=== PATIENT | female | born 1985 | race Caucasian/White ===

== ENCOUNTER → 2021-01-01 | Outpatient (CLI) | payer BC, MEDICAID | END | disposition home or self-care (01) | LOC: LAB SPEC 19:04 | PROVIDERS: ATTEND Urology | DX: F31.9 Bipolar disorder, unspecified (principal) | CPT/HCPCS: 36415; 80178 ==

== ENCOUNTER 2021-09-22 09:46 | Emergency (ER) | payer MEDICARE, BC, MEDICAID ==
[~2021-09-22] VITALS: Ht 160 cm; Wt 99.5 kg
[2021-09-22 10:32] VITALS: BP 136/90
== END 2021-09-22 12:44 | disposition home or self-care (01) ==
LOC: ER 09:47
DX: T82.838A Hemorrhage due to vascular prosthetic devices, implants and grafts, initial encounter (principal); Q79.60 Ehlers-Danlos syndrome, unspecified; K31.84 Gastroparesis; Z86.2 Personal history of diseases of the blood and blood-forming organs and certain disorders involving the immune mechanism; Y84.8 Other medical procedures as the cause of abnormal reaction of the patient, or of later complication, without mention of misadventure at the time of the procedure; Y92.89 Other specified places as the place of occurrence of the external cause
CPT/HCPCS: 99284

== ENCOUNTER 2022-01-13 19:28 | Emergency (ER) | payer MEDICARE, BC, MEDICAID ==
[~2022-01-13] VITALS: Ht 160 cm; Wt 101.8 kg
--- NOTE | 2022-01-13 20:48 | NUR ---
Interperter computer at bedside. Set up for ASL.
[2022-01-13] MEDS ORDERED: famotidine/PF 10 mg/ml inj IV ONE (21:25)
[2022-01-13] MEDS ORDERED: diphenhydrAMINE 50 mg/ml inj IV ONE (21:30)
[2022-01-13] MEDS ORDERED: TIZA4CAP PO (22:42)
[2022-01-13] MEDS ORDERED: CELE-193 PO (22:42)
[2022-01-13] MEDS ORDERED: APIX5TAB3 PO (22:42)
[2022-01-13] MEDS ORDERED: VERA40TA5 PO (22:42)
[2022-01-13] MEDS ORDERED: LAMO25TA5 PO (22:42)
[2022-01-13] MEDS ORDERED: POLY119P2 PO (22:42)
[2022-01-13] MEDS ORDERED: GABA600T13 PO (22:42)
[2022-01-13] MEDS ORDERED: FEXO180T94 PO (22:42)
[2022-01-13] MEDS ORDERED: MELA10TA PO (22:42)
[2022-01-13] MEDS ORDERED: LITH300C PO (22:42)
[2022-01-13] MEDS ORDERED: ZILE600T PO (22:42)
[2022-01-13] MEDS ORDERED: TEN1T PO (22:42)
[2022-01-13] MEDS ORDERED: DOXE100C10 PO (22:42)
[2022-01-13] MEDS ORDERED: MIRT-114 PO (22:42)
[2022-01-13] MEDS ORDERED: apixaban 5mg tablet PO SCH (23:38)
[2022-01-13] MEDS ORDERED: celeCOXIB 100mg capsule PO SCH (23:39)
[2022-01-13] MEDS ORDERED: guanFACINE 1 mg tablet PO SCH (23:39)
[2022-01-13] MEDS ORDERED: lamoTRIgine 100mg tablet PO SCH (23:39)
[2022-01-13] MEDS ORDERED: gabapentin 300mg capsule PO SCH (23:42)
[2022-01-13] MEDS ORDERED: doxepin 25mg capsule PO SCH (23:56)
[2022-01-13] MEDS ORDERED: loratadine 10mg tablet PO SCH (23:57)
[2022-01-14] MEDS ORDERED: Melatonin 3mg tablet PO SCH (00:27)
[2022-01-14] MEDS ORDERED: mirtazapine 15mg tablet PO SCH (00:30)
[2022-01-14] MEDS ORDERED: tizanidine 4mg tablet PO SCH (00:31)
[2022-01-14] MEDS ORDERED: polyethylene glycol 3350 17gm powd pack PO SCH (00:32)
[2022-01-14] MEDS ORDERED: ZILEUTON 600 MG PO SCH (00:39)
[2022-01-14 02:10] VITALS: BP 141/82
== END 2022-01-14 01:40 | disposition home or self-care (01) ==
LOC: ER 19:29
DX: Z04.6 Encounter for general psychiatric examination, requested by authority (principal); Z20.822 Contact with and (suspected) exposure to COVID-19; Z88.1 Allergy status to other antibiotic agents; Z88.6 Allergy status to analgesic agent; Z88.8 Allergy status to other drugs, medicaments and biological substances; Z88.5 Allergy status to narcotic agent
CPT/HCPCS: 87811; 96374; 96375; 99284; J1200; J3490

== ENCOUNTER 2024-11-11 15:04 | Emergency (ER) | payer MEDICARE, BC, MEDICAID ==
[~2024-11-11] VITALS: Ht 160 cm; Wt 89.0 kg
[~2024-11-11 15:04] MED LIST: APIX5TAB3 PO; CELE-193 PO; DOXE100C10 PO; FEXO180T94 PO; GABA-1405 PO; LAMO25TA5 PO; LITH300C PO; MELATONIN10 MG PO; POLY119P2 PO; TEN1T PO; TIZA4CAP PO; VERA40TA5 PO; ZILE600T PO; [UNRECOGNIZED DRUG - CODE] PO
[2024-11-11 15:06] VITALS: BP 104/50; PULSE 92; RESP 16; O2SAT 98
--- NOTE | 2024-11-11 15:17 | Physician Documentation ---
History of Present Illness ~ Stated Complaint: 5150 Time Seen by MD: 15:39 OK to notify your PCP?: Yes Primary Medical Doctor: Alexandro Huizar Source: patient, RN/, RN notes reviewed, old records Mode of Arrival: POV Exam Limitations: no limitations HPI 39-year-old female brought in by [facility] crisis team with a written 5150. She reportedly overdosed on an unknown medication 2 weeks ago and today notified [facility] that she was going to attempt to end her life by putting air into her central line. She is deaf and when using sign language interpretation she was not answering our questions about if she has an active plan will now to end her life. She has a complex medical history and reports that she no longer wants to deal with her medical problems. 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 Patient presents of a bipap machine as she has a collapse of her dynamic airway and she states she is on BIPAP 04/01. Her primary complaint is that she wants to kill herself as she is overwhelmed with her medical management. She arrives with luggage and a side bag filled with medications and requests to be in charge of her own medications while on a mental health hold. Additionally patient self caths as she cannot empty her bladder on her own. She also has a feeding tube and a port. Of note she states that she receives her medical treatment from both [place] and [place]. Medication Reconciliation Allergies: Coded Allergies: Latex, Natural Rubber (Verified Allergy, Unknown, 11/11/24) Opioids - Morphine Analogues (Verified Allergy, Unknown, 11/11/24) aripiprazole (Verified Allergy, Unknown, 11/11/24) aztreonam (Verified Allergy, Unknown, 11/11/24) clomipramine (Verified Allergy, Unknown, 11/11/24) clonazepam (Verified Allergy, Unknown, 11/11/24) docusate (Verified Allergy, Unknown, 01/13/22) haloperidol (Verified Allergy, Unknown, 01/13/22) lorazepam (Verified Allergy, Unknown, 01/13/22) prochlorperazine (Verified Allergy, Unknown, 01/13/22) tramadol (Verified Allergy, Unknown, 01/13/22) vancomycin (Verified Allergy, Unknown, 01/13/22) Scheduled Apixaban (Eliquis), 1 TAB PO BID, (Reported) Celecoxib* (Celebrex*), 1 CAP PO BID, (Reported) Doxepin HCl (Doxepin HCl), 1 CAP PO HS, (Reported) Fexofenadine* (Mey*), 2 TAB PO HS, (Reported) Gabapentin (Gabapentin), 2 TAB PO TID, (Reported) Guanfacine Hcl (TENEX tablet), 1 MG PO TID, (Reported) Lamotrigine (Lamotrigine), 250 MG PO HS, (Reported) [place] Carbonate ([place] Carbonate), 3 CAP PO HS, (Reported) Melatonin (Melatonin), 1 TAB PO HS, (Reported) Mirtazapine (Remeron), 2 TAB PO HS, (Reported) Polyethylene Glycol 3350 (Miralax), 17 GM PO HS, (Reported) Tizanidine Hcl (Zanaflex), 1 CAP PO HS, (Reported) Verapamil Hcl (Verapamil Hcl), 40 MG PO TID, (Reported) Zileuton (Zyflo), 2 TAB PO BID, (Reported) Past Medical History Past Medical History: Migraine, Arrhythmia, *PULMONARY*, Asthma, Sleep Apnea, *GI/HEPATOBILIARY*, GERD, *HEMATOLOGY*, Anemia, Hypothyroidism, Arthritis, Deep Vein Thrombosis, Fibromyalgia, *PSYCH*, Anxiety, Bipolar, Depression Past Surgical History: noncontributory Alcohol Use: None Drug Use: none Lives with: Mother Lives In: Home Review of Systems All Other Systems at this time: Reviewed and Negative ROS As stated above in the HPI, otherwise all systems are reviewed and negative. Physical Exam Vital Signs: RN Vital Signs have been reviewed: Yes Pulse Oximetry Reflects: adequate oxygenation Physical Exam Rapid medical assessment: General: Alert, no apparent distress. HEENT: PERRL, EOMI, no injection, moist mucous membranes. Neck: Full range of motion. Respiratory: Lungs clear, no respiratory distress. Home CPAP in use. Chest: No accessory muscle use. Cardiovascular: Regular rate and rhythm, no murmurs. Gastrointestinal: Soft, nontender, nondistended. Bowels sounds present. Extremities: Normal range of motion, no deformity. Neurologic: Oriented x4. Psychiatric: Withdrawn and tearful. Skin: Normal color, warm and dry. No edema, no ecchymosis. Knight: General: Patient is wearing oxygen mask. She is speaking using sign language. The patient is well developed, well nourished, nontoxic appearing and is in no acute distress. Skin: [place], warm and dry with no rashes. HEENT: Head was normocephalic and atraumatic. Eyes - pupils equal, round, reactive to light and accommodation. Extraocular movements were intact. Conjunctivae were nonicteric. Ears - bilateral tympanic membranes were normal. The mouth and oropharynx were clear with moist mucous membranes. There were no pharyngeal exudates or erythema. Neck: Supple and nontender. There was no jugular venous distention, lymphad enopathy, thyromegaly or masses. Chest: Clear to auscultation bilaterally without wheezes, rales or rhonchi. No accessory muscle use. No dullness to percussion. Heart: Rate regular and rhythmic. S1, S2. No murmurs. Palpation of the chest wall was normal. No rubs or thrills. Abdomen: Soft, nontender and nondistended. Positive bowel sounds. No guarding or rebound. No hepatosplenomegaly or palpable masses. Extremities: No cyanosis, clubbing or edema. The patient moves all extremities. Pulses were equal and symmetric. Neurologic: Cranial nerves II-XII were intact. Sensation was intact to light touch throughout. Motor strength was 5/5 in all four extremities. Deep tendon reflexes were intact in both upper and lower extremities. Psychologic: Patient presents feeling suicidal. The patient was oriented to person, place and time. Progress Results/Orders Reviewed/noted all lab results: Yes Results/Orders Orders - ROEL KNIGHT MD Chest,Single View (11/11/24 16:04) Electrocardiogram (11/11/24 16:04) Completed Orders - ROEL KNIGHT MD Chest,Single View (11/11/24 16:04) Electrocardiogram (11/11/24 16:04) Vital Signs 11/11/24 15:06 Pulse 92 Resp 16 B/P (MAP) 104/50 Pulse Ox 98 O2 Flow Rate 0 Laboratory Tests Test 11/11/24 16:05 White Blood Count 17.6 H Red Blood Count 4.57 Hemoglobin 13.2 Hematocrit 40.6 Mean Corpuscular Volume 88.9 Mean Corpuscular Hemoglobin 28.9 Mean Corpuscular Hemoglobin Concent 32.5 L Red Cell Distribution Width 14.8 H Platelet Count 275 Mean Platelet Volume 8.4 Neutrophils (%) (Auto) 83.6 H Lymphocytes (%) (Auto) 9.5 L Monocytes (%) (Auto) 6.1 Eosinophils (%) (Auto) 0.5 Basophils (%) (Auto) 0.3 Neutrophils # (Auto) 14.7 H Lymphocytes # (Auto) 1.7 Monocytes # (Auto) 1.1 H Eosinophils # (Auto) 0.1 Basophils # (Auto) 0.0 CBC Comment Sodium Level 138 Potassium Level 4.0 Chloride Level 104 Carbon Dioxide Level 23.1 L Anion Gap 11 Blood Urea Nitrogen 9 Creatinine 0.86 Estimated GFR/1.73 m2 74 BUN/Creatinine Ratio 10.5 Glucose Level 95 Calcium Level 9.8 Albumin 4.6 Thyroid Stimulating Hormone (TSH) 2.09 Chemistry Comments Ethyl Alcohol Level < 10 Re-Evaluation Re-Evaluation : Re-Evaluation Time: 16:56 Re-Evaluation: Resolved Progress Patients mother who she lives with presented to the department and states that she will take the patient home rather than being put on a 5150. This patient is well-known to mental health. They intervened on the patient and had a family conference. Patient ultimately was discharged back home and will be watched and has a safety plan. Patient's white count was slightly elevated at 17.6 but no signs of infection slight left shift of 83 chemistries within normal limits including TSH tox screen is negative urinalysis was never obtained. Patient had additional studies done because of her complicated medical history. X-ray was obtained and there was no signs of any infiltrates or effusion. Poor inspiratory volumes. EKG was also obtained. Patient was then discharged home as mentioned above. EKG/XRAY/CT/US/VASC/MRI EKG : Additional Comment 1612: EDMD Knight interpreted EKG to show sinus rhythm at a rate of 62. Patient had prolonged Qtc of 567. She had non specific ST changes with poor R wave progression. Chest X-Ray : Additional Comments CHEST RADIOGRAPH Indication: CHEST PAIN Technique: Single frontal view of the chest was obtained COMPARISON: None FINDINGS: Lines and Tubes: Left-sided dual-chamber pacemaker with leads intact. Right- sided central venous catheter with the tip poorly visualized but likely in the SVC. Lungs: Mild interstitial prominence likely due to bronchovascular crowding in t he setting of low lung volumes. No focal airspace consolidation. Pleura: No effusion. No pneumothorax. Cardiomediastinal contours: Unremarkable Bones: Unremarkable IMPRESSION: 1. Mild interstitial prominence likely represents bronchovascular crowding in the setting of hypoinflation. No focal consolidations. 2. Left-sided pacemaker. Right-sided CVC. Electronically Signed by:BERTHA BUNDY DO Date & Time: 11/11/24 1707 Medical Decision Making Additional info obtained from: old records Differential Dx:Considerations: Include: Anxiety, Bipolar disorder, Conversion disorder, Depression, Personality disorder, Suicidal, Other Departure Time of Disposition: 16:55 Disposition: 01 HOME / SELF CARE / HOMELESS Impression: Primary Impression: Suicidal ideation Condition: Stable Discharge Instructions: Suicidal Feelings: How to Help Yourself Additional Instructions: Patient is to follow up with mental health recommendations. Referrals: NO PRIMARY CARE PROVIDER (PCP) Education Educated: Patient Educated regarding: diagnosis, need for follow up, other Additional Comment Medical Screen Exam This patient recieved a medical screening examination. After reviewing the individual's medical complaints with presenting symptoms and performing an appropriate physical examination, it was determined that no emergency medical condition is present. This individual is also not a women having contractions. Signature Scribe Signature: Scribed for Roel Knight MD by Kang Randall . 11/11/24 16:18 Attestation: The note accurately reflects work and decisions made by me.Roel Knight MD 11/11/24 15:45 ZAHRAA PANTOJA November 11, 2024 15:17 ROEL KNIGHT MD November 11, 2024 15:46 KANG WELDON November 11, 2024 16:15
[2024-11-11 16:13] LABS: BASOPHILS % (AUTO) 0.3 % (0-1); EOSINOPHILS # (AUTO) 0.1 X10'3 (0-0.9); EOSINOPHILS % (AUTO) 0.5 % (0-6); HEMATOCRIT 40.6 % (35.0-45.0); HEMOGLOBIN 13.2 g/dl (12.0-16.0); LYMPHOCYTES # (AUTO) 1.7 X10'3 (1.1-4.8); LYMPHOCYTES % (AUTO) 9.5 % (21-51); MEAN CORPUSCULAR HEMOGLOBIN 28.9 PG (27.0-31.0); MEAN CORPUSCULAR HGB CONC 32.5 g/dL (33.0-36.5); MEAN CORPUSCULAR VOLUME 88.9 FL (78-98); MEAN PLATELET VOLUME 8.4 FL (7.4-10.4); MONOCYTES # (AUTO) 1.1 X10'3 (0-0.9); MONOCYTES % (AUTO) 6.1 % (2-12); NEUTROPHILS # (AUTO) 14.7 X10'3 (1.8-7.7); NEUTROPHILS % (AUTO) 83.6 % (42-75); PLATELET COUNT 275 X10'3 (140-440); RED BLOOD COUNT 4.57 X10'6 (4.20-5.60); RED CELL DISTRIBUTION WIDTH 14.8 % (11.5-14.5); WHITE BLOOD COUNT 17.6 X10'3 (4.5-11.0)
--- NOTE | 2024-11-11 16:14 | ELECTROCARDIOGRAPH REPORT ---
[facility] Test Date: 2024-11-11 Test Time: 16:12:13 Pat Name: ANGEL CAT Department: [facility] Patient ID: [facility]-[id number] Room: Gender: F Snowmaker: : 1985 Requested By: ROEL MENDOZA Order Number: [id number] Reading MD: Dr. Roel Mendoza Measurements Intervals [place] Rate: 82 P: 32 MT: 182 QRS: -10 QRSD: 109 T: -36 QT: 485 QTc: 567 Interpretive Statements Sinus rhythm Low voltage, precordial leads RSR' in V1 or V2, right VCD or RVH Borderline T abnormalities, diffuse leads Prolonged QT interval Electronically Signed On 11-11-2024 18:10:[address] Roel Mendoza Please click the below link to view image of tracing.
[2024-11-11 16:53] LABS: ALBUMIN 4.6 G/DL (3.4-5.0); ANION GAP 11 (8-16); BLOOD UREA NITROGEN 9 MG/DL (7-18); BUN/CREATININE RATIO 10.5 (10.0-20.0); CALCIUM 9.8 MG/DL (8.5-10.1); CHLORIDE 104 MMOL/L (99-107); CREATININE 0.86 MG/DL (0.40-0.90); GLUCOSE 95 MG/DL (70-104); SODIUM 138 MMOL/L (135-145); THYROID STIMULATING HORMONE 2.09 ulU/ml (0.34-4.50); TOTAL CARBON DIOXIDE 23.1 MMOL/L (24-32); eCRCL 74 ML/MIN; eGFR 74 ML/MIN
[2024-11-11 16:55] LABS: ETHANOL < 10 MG/DL (<10)
--- NOTE | 2024-11-11 17:10 | RADIOLOGY REPORT ---
CHEST RADIOGRAPH Indication: CHEST PAIN Technique: Single frontal view of the chest was obtained COMPARISON: None FINDINGS: Lines and Tubes: Left-sided dual-chamber pacemaker with leads intact. Right-sided central venous cath eter with the tip poorly visualized but likely in the SVC. Lungs: Mild interstitial prominence likely due to bronchovascular crowding in the setting of low lung volumes. No focal airspace consolidation. Pleura: No effusion. No pneumothorax. Cardiomediastinal contours: Unremarkable Bones: Unremarkable IMPRESSION: 1. Mild interstitial prominence likely represents bronchovascular crowding in the setting of hypoinfl ation. No focal consolidations. 2. Left-sided pacemaker. Right-sided CVC.
== END 2024-11-11 17:17 | disposition home or self-care (01) ==
LOC: ER 15:04
DX: R45.851 Suicidal ideations (principal); J45.909 Unspecified asthma, uncomplicated; F31.9 Bipolar disorder, unspecified; E03.9 Hypothyroidism, unspecified; G47.30 Sleep apnea, unspecified; M19.90 Unspecified osteoarthritis, unspecified site; M79.7 Fibromyalgia; G43.909 Migraine, unspecified, not intractable, without status migrainosus; D64.9 Anemia, unspecified; Z86.718 Personal history of other venous thrombosis and embolism; Z88.1 Allergy status to other antibiotic agents; Z88.8 Allergy status to other drugs, medicaments and biological substances; Z91.040 Latex allergy status; Z88.6 Allergy status to analgesic agent; Z88.5 Allergy status to narcotic agent; Z95.0 Presence of cardiac pacemaker; Z79.899 Other long term (current) drug therapy
CPT/HCPCS: 36415; 71045; 80048; 84443; 85025; 93005; 99285; G0480; 80320